=== PATIENT | female | born 1975 | race Two or more races ===

== ENCOUNTER 2018-09-04 10:40 | Emergency (ER) | payer OTHER ==
[~2018-09-04] VITALS: Ht 157.5 cm; Wt 63.5 kg
[2018-09-04 10:51] VITALS: BP 122/74
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
--- NOTE | 2018-09-04 11:15 | NUR ---
ED Nurse Note: [employer] AT BEDSIDE
--- NOTE | 2018-09-04 11:25 | NUR ---
ED Nurse Note: PT TAKEN TO CT VIA [facility].
--- NOTE | 2018-09-04 11:46 | NUR ---
ED Nurse Note: PT BACK FROM CT VIA [facility].
--- NOTE | 2018-09-04 12:13 | Diagnostic Imaging Report ---
Indication: Headache Technique: Contiguous 5 mm thick transaxial imaging of the head obtained in a Siemens Sensation [address] scanner. Soft tissue and bone windows generated. Automatic Exposure Control was utilized. Total Dose length Product (DLP): 2073.[address] Dose Index Volume (CTDIvol): 70.38,28.19,13.06 mGy Comparison: none Findings: The size and configuration of the cortical sulci, basal cisterns, and ventricles are within normal limits for age. There is no mass effect, midline shift, or edema identified. There is no evidence of acute hemorrhage or abnormal intra-axial or extra-axial fluid collections. The bones and soft tissues are unremarkable. Impression: No mass effect, edema or acute bleed. The CT scanner at [facility] is accredited by the [employer] and the scans are performed using dose optimization techniques as appropriate to a performed exam including Automatic Exposure control.
--- NOTE | 2018-09-04 12:23 | Diagnostic Imaging Report ---
Indication: Neck pain. Technique: Continuous helical imaging of the cervical spine was obtained transaxially from the skull base to the upper thoracic spine. 2-D coronal and sagittal reformatted images were obtained. Automatic Exposure Control was utilized. Total Dose length Product (DLP): 2073.[address] Dose Index Volume (CTDIvol): 70.38,28.19,13.06 mGy Comparison: None Findings: There is no evidence of an acute fracture or malalignment. Atlantoaxial alignment appears normal. There is some narrowing of the C5-6 disc with mild marginal endplate osteophytes. Height and configuration of the vertebral bodies and intervertebral discs are within normal limits otherwise. Uncovertebral joints and facets are unremarkable. There is no soft tissue swelling. Impression: No acute injury appreciated. Mild degenerative disc disease at C5-[address] scanner at [facility] is accredited by the [employer] and the scans are performed using dose optimization techniques as appropriate to a performed exam including Automatic Exposure control.
--- NOTE | 2018-09-04 12:29 | Diagnostic Imaging Report ---
Indication: Nasal trauma and pain Technique: Continuous helical transaxial imaging of the maxillofacial structures obtained without intravenous contrast administration. Coronal 2-D reformats were also obtained. Study obtained in a Siemens sensation [address] Automatic Exposure Control was utilized. Total Dose length Product (DLP): Refer to CT head mGycm CT Dose Index Volume (CTDIvol): Refer to CT head mGy Comparison: None Findings: There is a comminuted nasal fracture demonstrated at the midline. There are bilateral fractures involving the frontal processes of the maxilla displaced toward the left. The right nasomaxillary suture is normal. The left nasomaxillary suture is slightly displaced. There is soft tissue swelling over the nose as well as the right facial region. There is a fracture of the anterior nasal septum which appears truncated. There is also a fracture of the midportion of the nasal septum. There is no hematoma in the nasal cavity identified. The turbinates appear relatively normal. Small fluid retention cyst in the anterior aspect of the right maxillary antrum noted. IMPRESSION: Acute comminuted nasal fracture, bilateral fractures of the frontal processes of the maxilla with leftward displacement and fracture of the nasal septum as described above. The CT scanner at [facility] is accredited by the [employer] and the scans are performed using dose optimization techniques as appropriate to a performed exam including Automatic Exposure control.
[2018-09-04] MEDS ORDERED: Bacitracin Oint UD TOPIC ONE (13:00)
[2018-09-04] MEDS ORDERED: NORCO 5-325 TA1 EACH ORAL (13:10)
[2018-09-04] MEDS ORDERED: IBUPROFEN600 MG ORAL (13:10)
[2018-09-04 13:21] VITALS: BP 126/76
--- NOTE | 2018-09-04 13:22 | NUR ---
ED Nurse Note: pt cleared to be d/c per ER provider, pt discharge/after care instruction provided w/ prescription, pt education done via discussion and hand out, pt advised to follow up with pcp or return to ed if sx worsen or new sx develop, pt verbalized understanding and agrees with plan, no neuro changes, resp even and unlabored on RA, pt VSS, ambulatory w/ steady gait, all belongings left w/ pt.
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
== END 2018-09-04 13:25 | disposition home or self-care (01) ==
LOC: EDBD 10:40 → EMR 12:50
DX: S09.90XA Unspecified injury of head, initial encounter (principal); S02.2XXA Fracture of nasal bones, initial encounter for closed fracture; M54.2 Cervicalgia; V43.64XA Car passenger injured in collision with van in traffic accident, initial encounter; Y92.410 Unspecified street and highway as the place of occurrence of the external cause
CPT/HCPCS: 70450; 70486; 72125; 99284